=== PATIENT | female | born 1970 | race Caucasian/White ===

== ENCOUNTER 2025-05-01 13:13 | Emergency (ER) | payer BC ==
[2025-05-01 13:34] LABS: BASOPHILS ABSOLUTE AUTO 0.04 K/uL (0.00-0.10); BASOPHILS PERCENT AUTO 0.4 % (0.1-1.3); EOSINOPHILS ABSOLUTE AUTO 0.05 K/uL (0.00-0.40); EOSINOPHILS PERCENT AUTO 0.4 % (0.0-5.4); IMMATURE GRAN ABSOLUTE AUTO 0.06 K/uL (0.00-0.23); IMMATURE GRAN PERCENT AUTO 0.5 % (0.0-0.7); LYMPHOCYTES ABSOLUTE AUTO 0.96 K/uL (0.8-3.3); LYMPHOCYTES PERCENT AUTO 8.6 % (11.4-47.7); MONOCYTES ABSOLUTE AUTO 0.83 K/uL (0.20-0.90); MONOCYTES PERCENT AUTO 7.4 % (3.3-12.6); NEUTROPHILS ABSOLUTE AUTO 9.25 K/uL (1.0-7.6); NEUTROPHILS PERCENT AUTO 82.7 % (40.0-78.1); PLATELET COUNT,PLT 281 K/uL (130-375); RED BLOOD CELL COUNT 4.36 M/uL (3.77-5.24); WHITE BLOOD CELL COUNT,WBC 11.2 K/uL (3.2-11.0)
[2025-05-01] MEDS ORDERED: Ondansetron 4 MG/2 ML SDV ONE (13:47)
[2025-05-01 13:53] LABS: A/G RATIO 1.4 (1.2-2.2); ALANINE AMINOTRANSFERASE,ALT 27 U/L (12-78); ASPARTATE AMNIOTRANSFERASE,AST 27 U/L (15-37); BILIRUBIN TOTAL 0.4 mg/dL (0.2-1.0); BLOOD UREA NITROGEN,BUN 19 mg/dL (7-18); CARBON DIOXIDE,CO2 28 mmol/L (21-32); CHLORIDE,CL 102 mmol/L (100-108); CREATININE 0.8 mg/dL (0.6-1.0); ESTIMATED GFR 87 mL/min (>60); GLUCOSE RANDOM 138 mg/dL (74-106); POTASSIUM,K 4.0 mmol/L (3.6-5.2); PROTEIN TOTAL,TP 6.6 g/dL (6.4-8.2); SODIUM,NA 141 mmol/L (140-148)
[2025-05-01] MEDS: Ondansetron 4 MG/2 ML SDV IVPUSH ONE (14:04)
[2025-05-01] MEDS: Bacitracin Oint 1 GM U/D Packet TOP ONE (15:52)
[2025-05-01 16:32] LABS: APPEARANCE,URINE SLIGHTLY CLOUDY (CLEAR); GLUCOSE,URINE NEGATIVE (NEGATIVE); OCCULT BLOOD,URINE TRACE-INTACT (NEGATIVE)
[2025-05-01 16:39] LABS: SQUAMOUS EPITHELIAL CELLS,UR RARE /HPF
[2025-05-01] MEDS: fentaNYL 50 MCG/ML SDV IVPUSH ONE (16:58)
== END 2025-05-01 17:10 | disposition home or self-care (01) ==
LOC: JP.ED 13:13
DX: S42.022A Displaced fracture of shaft of left clavicle, initial encounter for closed fracture (principal); S22.42XA Multiple fractures of ribs, left side, initial encounter for closed fracture; Z88.8 Allergy status to other drugs, medicaments and biological substances; Z79.899 Other long term (current) drug therapy; V18.2XXA Unspecified pedal cyclist injured in noncollision transport accident in nontraffic accident, initial encounter
CPT/HCPCS: 36415; 70450; 71046; 72125; 73000; 73030; 76377; 80053; 81001; 85025; 96374; 99283; 99285; J2405; J3010